=== PATIENT | female | born 1955 | race Caucasian/White ===

== ENCOUNTER 2022-06-26 10:02 | Outpatient (CLI) | payer OTHER ==
--- NOTE | 2022-06-26 14:34 | XRAY Report ---
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 COMPARISON: None FINDINGS: Bones: No fractures or dislocations. No suspicious bony lesions. The visualized pelvic ring appear s intact. Mild bilateral hip degenerative change. Soft tissues: No suspicious soft tissue calcifications or masses. IMPRESSION: Mild bilateral hip degenerative change. No evidence acute bony abnormality of the pelvis and bilatera l hips. If clinical suspicion and/or symptoms persist, further assessment with repeat plain films or advanced imaging (e.g., CT, MRI, or bone scan) may be helpful for further assessment. Reviewed by: Frank Forman MD on 06/26/2022 2:32 PM PDT Approved by: Frank Forman MD on 06/26/2022 2:32 PM PDT Station ID: [id number]
== END 2022-06-26 10:03 | disposition home or self-care (01) ==
LOC: DI.S 10:02
PROVIDERS: ATTEND Physician Assistant
DX: M16.0 Bilateral primary osteoarthritis of hip (principal)

== ENCOUNTER 2022-08-31 07:00 | Outpatient (CLI) | payer OTHER ==
--- NOTE | 2022-08-31 12:13 | XRAY Report ---
PROCEDURE: Knee 4 View LT INDICATIONS: LEFT KNEE PAIN TECHNIQUE: 4 views of the left knee(s) were acquired. COMPARISON: None. FINDINGS: Bones: No fractures or dislocations. No suspicious bony lesions. Minimal osteophytes. Soft tissues: Trace knee joint effusion. No suspicious soft tissue calcifications or masses. IMPRESSION: No acute bony abnormality. Minimal degenerative change. Comment: If suspect internal derangement, consider knee MRI. Reviewed by: Frank Forman MD on 08/31/2022 12:11 PM PDT Approved by: Frank Forman MD on 08/31/2022 12:11 PM PDT Station ID: [id number]
== END 2022-08-31 23:59 | disposition home or self-care (01) ==
LOC: DI.S 07:00
PROVIDERS: ATTEND Registered Nurse
DX: M17.12 Unilateral primary osteoarthritis, left knee (principal)